=== PATIENT | male | born 1965 | race Caucasian/White ===

== ENCOUNTER 2017-07-04 10:48 | Outpatient (CLI) | payer MEDICARE, OTHER | END 2017-07-04 10:49 | disposition home or self-care (01) | LOC: SC 10:48 | PROVIDERS: ATTEND Nurse Practitioner Family | DX: G47.10 Hypersomnia, unspecified (principal); G47.8 Other sleep disorders; R06.83 Snoring | CPT/HCPCS: 99204; G0463; 99212 ==

== ENCOUNTER 2017-08-22 19:33 | Outpatient (CLI) | payer MEDICARE, OTHER | END 2017-08-22 19:34 | disposition home or self-care (01) | LOC: SC 19:33 | PROVIDERS: ATTEND Internal Medicine Pulmonary Disease | DX: G47.33 Obstructive sleep apnea (adult) (pediatric) (principal); I47.1 Supraventricular tachycardia | CPT/HCPCS: 95810 ==

== ENCOUNTER 2017-10-10 09:13 | Outpatient (CLI) | payer MEDICARE, OTHER | END 2017-10-10 09:14 | disposition home or self-care (01) | LOC: SC 09:13 | PROVIDERS: ATTEND Nurse Practitioner Family | DX: G47.33 Obstructive sleep apnea (adult) (pediatric) (principal) | CPT/HCPCS: 99214; G0463; 99212 ==

== ENCOUNTER 2018-01-21 15:13 | Outpatient (CLI) | payer MEDICARE, OTHER | END 2018-01-21 15:14 | disposition home or self-care (01) | LOC: SC 15:13 | PROVIDERS: ATTEND Nurse Practitioner Family | DX: G47.33 Obstructive sleep apnea (adult) (pediatric) (principal) | CPT/HCPCS: 99214; G0463; 99212 ==

== ENCOUNTER 2018-02-27 11:13 | Outpatient (CLI) | payer MEDICARE, OTHER | END 2018-02-27 11:14 | disposition home or self-care (01) | LOC: SC 11:13 | PROVIDERS: ATTEND Nurse Practitioner Family | DX: G47.33 Obstructive sleep apnea (adult) (pediatric) (principal); G47.23 Circadian rhythm sleep disorder, irregular sleep wake type | CPT/HCPCS: 99214; G0463; 99212 ==

== ENCOUNTER 2018-04-10 13:17 | Outpatient (CLI) | payer MEDICARE, OTHER | END 2018-04-10 13:18 | disposition home or self-care (01) | LOC: SC 13:17 | PROVIDERS: ATTEND Nurse Practitioner Family | DX: G47.33 Obstructive sleep apnea (adult) (pediatric) (principal) | CPT/HCPCS: 99215; G0463; 99212 ==

== ENCOUNTER 2018-07-28 14:39 | Outpatient (CLI) | payer MEDICARE, OTHER | END 2018-07-28 14:40 | disposition home or self-care (01) | LOC: SC 14:39 | PROVIDERS: ATTEND Nurse Practitioner Family | DX: G47.33 Obstructive sleep apnea (adult) (pediatric) (principal) | CPT/HCPCS: 99214; G0463; 99212 ==

== ENCOUNTER 2018-09-25 13:46 | Outpatient (CLI) | payer MEDICARE, OTHER | END 2018-09-25 13:47 | disposition home or self-care (01) | LOC: SC 13:46 | PROVIDERS: ATTEND Nurse Practitioner Family | DX: G47.33 Obstructive sleep apnea (adult) (pediatric) (principal) | CPT/HCPCS: 99214; G0463; 99212 ==

== ENCOUNTER 2018-12-04 13:49 | Outpatient (CLI) | payer MEDICARE, OTHER | END 2018-12-04 13:50 | disposition home or self-care (01) | LOC: SC 13:49 | PROVIDERS: ATTEND Nurse Practitioner Family | DX: G47.33 Obstructive sleep apnea (adult) (pediatric) (principal) | CPT/HCPCS: 99214; G0463; 99212 ==

== ENCOUNTER 2019-06-16 10:45 | Outpatient (CLI) | payer MEDICARE, OTHER ==
--- NOTE | 2019-06-16 11:45 | SLEEP CARE CONSULTATION ---
Information from patient questionnaire entered by Ellie Singh. I have reviewed and concur with the information entered by Ellie Singh. This document represents the service I personally performed and the decisions made by me, Marly Lockett, RN, MSN, [employer]ING CONSULTANT. History of Present Illness Previous diagnosis: Moderate, Obstructive Sleep Apnea-Hypopnea Syndrome AHI: 20.7 Reason for follow up: six month Equipment type: CPAP Equipment obtained from: [employer] Mask style: Nasal pillows Mask brand: [employer] Backup mask available: Yes (full face mask) Last cushion change: a week ago CPAP Compliance Data - Data Reviewed with Patient Average duration of nightly device use: 6.8 Compliance rate %: 84.4 (180 days) Current pressure setting (cmH2O): 6-10 Humidity settin Heated hose settin Average residual AHI: 2.6 Average large leak: 1 min 46 sec Subjective Patient concerns: reports: other (some face irritation from mask even with daily cleaning ). denies: aerophagia, mask discomfort, air blowing in eyes, mask leak noise, condensation in mask/hose, nasal congestion, dry mouth, nose, throat, epistaxis Observed to snore while using device: No Current pressure setting perceived as: comfortable On therapy, patient: reports: sleeping better, awakening more refreshed, being more awake and alert during the day, more rested overall. denies: drowsiness while driving Initial [place] Sleepiness Scale score: 5 Current [place] Sleepiness Scale score: 1 Allergies and Home Medications Known drug allergies: Yes Home medication list reviewed: Yes Allergy and home medication list: Atorvastatin 40mg HS Review of Systems Review of systems same as previous: No (right bicep surgery 05/04/19) Physical Exam Blood Pressure: 110/78 Cuff size: long Heart Rate: 73 O2 Saturation: 97 Height: 5 ft 11.5 in Weight: 235 lb 12.8 oz (with arm brace ) Body Mass Index: 32.4 BMI Classification: Obesity Class 1 Impression and Plan 1. Obstructive Sleep Apnea-Hypopnea Syndrome, moderate, with good treatment compliance and good apnea control. On CPAP therapy, the patient has better sleep quality and is more rested overall. To reduce mask irritation that he notices after one week of mask cushion use, I showed him cloth barriers that can be obtained through [employer] and pamphlet given. Another idea is to buy extra cushions online so can change weekly and see if less skin irritation. He washes his mask cushion daily and rinses well so irritation is not from skin oils. He can also try a new mask style. There is also a [employer] cloth mask style that I showed him that he can try. After some discussion, he would wants to try this style and I wrote an order. If not available, through [employer], he can try the cloth barrier as noted. I also answered questions about his cleaning methods and gave our reference sheet to review. I also answered questions about the cleaning machine and for him to do the research. The [employer] device does not void warranty of the CPAP per the rep I reached out to. Patient's apnea severity and rationale for treatment to reduce apnea, improve sleep quality and reduce cardiovascular and cerebrovascular events was reviewed. I also reviewed the benefit of consistent device use of CPAP for hypertension. * Continue CPAP pressure at 6-10 cmH2O * Try new mask style * Notify me if snoring with mask or feeling that the pressure is too much or too little * Attempt to lose weight * Call this office if any problems using CPAP * Return for follow up in 1 year , or sooner if concerns arise Time Spent with Patient (minutes): 27 minutes I spent 100% of this visit face to face with the patient with greater than 50% of this was spent time counseling the patient and coordination of care.
[2019-06-16 11:46] VITALS: BP 110/78
== END 2019-06-16 10:46 | disposition home or self-care (01) ==
LOC: SC 10:45
PROVIDERS: ATTEND Nurse Practitioner Family
DX: G47.33 Obstructive sleep apnea (adult) (pediatric) (principal); E66.9 Obesity, unspecified; Z68.32 Body mass index [BMI] 32.0-32.9, adult
CPT/HCPCS: 99214; G0463; 99212

== ENCOUNTER 2022-03-20 13:57 | Outpatient (CLI) | payer MEDICARE, OTHER ==
[2022-03-20 14:32] VITALS: BP 112/88
--- NOTE | 2022-03-20 14:32 | SLEEP CARE CONSULTATION ---
Information from patient questionnaire entered by Екатерина Huynh. I have reviewed and concur with the information entered by Екатерина Huynh. This document represents the service I personally performed and the decisions made by me, Cleo Lopez ARNP. History of Present Illness Service Date and Time: 03/20/2022 1357 Previous diagnosis: Moderate, Obstructive Sleep Apnea-Hypopnea Syndrome AHI: 20.7 Reason for follow up: other (2 month f/u, mask change ) Equipment type: CPAP (dreamstation) Equipment obtained from: [employer] (getting supplies, just taking time) Mask style: Nasal pillows Mask brand: Respironics (Dreamwear) Backup mask available: Yes (other mask) Prior sleep studies: Yes HPI additional information: KAVEH ALEJANDRO was diagnosed to have moderate, AHI 20.7, obstructive sleep apnea- hypopnea syndrome and returned today for CPAP therapy two month follow-up. Sleep Study - Results Prior sleep studies: Yes CPAP Compliance Data - Data Reviewed with Patient Average duration of nightly device use: 4 hours 5 mins Compliance rate %: 16.7 (03/09 days used) Current pressure setting (cmH2O): 6-10 Average residual AHI: 3.7 Central apnea: 0.3 Obstructive apnea: 0.7 Average large leak: 13.7 L/min Subjective Missed days of use due to: reports: mask issues Patient concerns: reports: mask discomfort, air blowing in eyes, mask leak noise, other (skin irritation from air blowing on face). denies: aerophagia, condensation in mask/hose, nasal congestion, dry mouth, nose, throat, epistaxis Observed to snore while using device: No Current pressure setting perceived as: comfortable On therapy, patient: reports: more rested overall, other (snoring worse without CPAP). denies: drowsiness while driving Initial [place] Sleepiness Scale score: 5 Current [place] Sleepiness Scale score: 1 (03/20/22) Allergies and Home Medications Drug allergies reviewed: Yes (asa, codeine, ibuprofen) Home medication list reviewed: Yes (no changes) Allergy and home medication list: Allergies aspirin Allergy (Unknown, Verified 07/08/13 06:42) stomach pain codeine Adverse Reaction (Intermediate, Verified 07/08/13 06:43) stomach pain ibuprofen [From Motrin] Adverse Reaction (Intermediate, Verified 07/08/13 06:43) stomach pain Review of Systems Review of systems same as previous: Yes (no changes) Physical Exam Vital signs obtained and entered by: ANNETTA MAO Blood Pressure: 112/88 (left arm ) Cuff size: regular Heart Rate: 74 O2 Saturation: 98 Height: 5 ft 11.5 in Weight: 228 lb Body Mass Index: 31.3 BMI Classification: Obese Impression and Plan 1. Obstructive Sleep Apnea-Hypopnea Syndrome, moderate, with poor treatment compliance and good apnea control. On CPAP therapy, the patient has better sleep quality and is more rested overall. Patient is working with his dentist to see if they can get him in an oral appliance for his sleep apnea. He has issues with skin irritation when using the mask because of the air leaking on his skin and drying it out. He tried skin barriers with the nasal cushion mask but this did not help at all. He contacted his DME for a different mask, a nasal pillows Dreamwear by [employer]. He just received it and will start trying this mask tonigh t. I will have him try the mask and we will follow up with him in 1-2 months to see how things are going. I he has an oral appliance for sleep apnea completed, I can have him do a follow up sleep study to check efficacy. Patient's apnea severity and rationale for treatment to reduce apnea, improve sleep quality and reduce cardiovascular and cerebrovascular events was reviewed. I also reviewed the benefit of consistent device use of CPAP for hypertension. 2. Obesity, unspecified. Currently patients BMI is 31.3. Obesity increases the risk of apnea, CPAP pressure requirements and overall health risks especially cardiovascular and diabetes. Thus patient is advised to lose weight. * Continue auto CPAP pressure at 6-10 cmH2O * Notify me if snoring with mask or feeling that the pressure is too much or too little * Attempt to lose weight * Call this office if any problems using CPAP * Return for follow up in 1-2 months, or sooner if concerns arise Counseling Topics: Spare mask, Weight loss health impact Visit Type: In Office Time Spent with Patient (minutes): 21 Provider Statement: I spent 100% of the Face to Face Visit with the patient with greater than 50% spent counseling the patient and coordination of care.
== END 2022-03-20 13:58 | disposition home or self-care (01) ==
LOC: SC 13:57
PROVIDERS: ATTEND Nurse Practitioner Family
DX: G47.33 Obstructive sleep apnea (adult) (pediatric) (principal); E66.9 Obesity, unspecified; Z68.31 Body mass index [BMI] 31.0-31.9, adult
CPT/HCPCS: 99213; G0463; 99212

== ENCOUNTER 2022-05-22 13:55 | Outpatient (CLI) | payer MEDICARE, OTHER ==
[2022-05-22 14:36] VITALS: BP 138/84
--- NOTE | 2022-05-22 14:36 | SLEEP CARE CONSULTATION ---
Information from patient questionnaire entered by Anthony Avila. I have reviewed and concur with the information entered by Anthony Avila. This document represents the service I personally performed and the decisions made by me, Cleo Lopez ARNP. History of Present Illness Service Date and Time: 05/22/2022 1355 Previous diagnosis: Moderate, Obstructive Sleep Apnea-Hypopnea Syndrome AHI: 20.7 Reason for follow up: other (2 MONTH F/U) Equipment type: CPAP (DREAM STATION) Equipment obtained from: [employer] (getting supplies) Mask style: Nasal pillows Mask brand: Respironics (Dreamwear, medium cushion) Backup mask available: Yes (other mask) Prior sleep studies: Yes HPI additional information: KAVEH ALEJANDRO was diagnosed to have moderate, AHI 20.7, obstructive sleep apnea- hypopnea syndrome and returned today for CPAP therapy two month follow-up. Sleep Study - Results Prior sleep studies: Yes CPAP Compliance Data - Data Reviewed with Patient Average duration of nightly device use: 7 hours 23 minutes Compliance rate %: 50.0 (30/60 days used; 73% last 30 days) Current pressure setting (cmH2O): 6-10 Average residual AHI: 3 Central apnea: 0.6 Obstructive apnea: 0.7 Subjective Missed days of use due to: reports: mask issues (skin irritation), travel Patient concerns: reports: mask discomfort, other (face rash, irritation from drying skin). denies: aerophagia, air blowing in eyes, mask leak noise, condensation in mask/hose, nasal congestion, dry mouth, nose, throat, epistaxis Observed to snore while using device: No Current pressure setting perceived as: comfortable On therapy, patient: reports: other (feels it is calming when can get in [employer]). denies: drowsiness while driving Initial [place] Sleepiness Scale score: 5 Current [place] Sleepiness Scale score: 2 (05/22/22) Allergies and Home Medications Drug allergies reviewed: Yes (see list in EMR) Home medication list reviewed: Yes (no changes) Review of Systems Review of systems same as previous: Yes (no changes) Physical Exam Vital signs obtained and entered by: ANTHONY Weber MA Blood Pressure: 138/84 (LEFT ARM) Cuff size: regular Heart Rate: 85 O2 Saturation: 97 Height: 5 ft 11.5 in Weight: 240 lb Body Mass Index: 33.0 BMI Classification: Obese Impression and Plan 1. Obstructive Sleep Apnea-Hypopnea Syndrome, moderate, with good treatment compliance and good apnea control. On CPAP therapy, the patient has better sleep quality and is more rested overall. Patient still having some skin irritation from his mask but he is treating his skin per his doctor's recommendations. He keeps his mask cushion clean. He will stop wearing mask if rash gets too bad and wait for it to clear up. I advised trying barriers but he states he did and this did not seem to help reduce skin irritation. I advised him to either try a memory foam mask or possibly [employer] cloth masks next if the skin irritation does not improve or worsens. He will request mask fitting as needed. He will continue with current mask at this time. Patient's apnea severity and rationale for treatment to reduce apnea, improve sleep quality and reduce cardiovascular and cerebrovascular events was reviewed. I also reviewed the benefit of consistent device use of CPAP for hypertension. 2. Obesity, unspecified. Currently patients BMI is 33.0. Obesity increases the risk of apnea, CPAP pressure requirements and overall health risks especially cardiovascular and diabetes. Thus patient is advised to lose weight. * Continue auto CPAP pressure at 6-10 cmH2O * Notify me if snoring with mask or feeling that the pressure is too much or too little * Attempt to lose weight * Call this office if any problems using CPAP * Return for follow up in 1 year, or sooner if concerns arise Counseling Topics: Spare mask, Weight loss health impact Visit Type: In Office Time Spent with Patient (minutes): 23 Provider Statement: I spent 100% of the Face to Face Visit with the patient with greater than 50% spent counseling the patient and coordination of care.
== END 2022-05-22 13:56 | disposition home or self-care (01) ==
LOC: SC 13:55
PROVIDERS: ATTEND Nurse Practitioner Family
DX: G47.33 Obstructive sleep apnea (adult) (pediatric) (principal); E66.9 Obesity, unspecified; Z68.33 Body mass index [BMI] 33.0-33.9, adult
CPT/HCPCS: 99213; G0463; 99212

== ENCOUNTER 2023-07-31 17:10 | Outpatient (CLI) | payer MEDICARE, OTHER | END 2023-07-31 23:59 | disposition left against medical advice (07) | LOC: EMS 17:10 | DX: R41.82 Altered mental status, unspecified (principal) ==